=== PATIENT | female | born 1980 | race Caucasian/White ===

== ENCOUNTER → 2018-04-07 | Outpatient (CLI) | payer BC ==
[2018-04-07 15:16] LABS: ADD MAN DIFF? NO; BASO # 0.1 x10^3/uL (0.0-0.2); BASO % 1 % (0-3); EOS # 0.1 x10^3/uL (0.0-0.7); EOS % 1 % (0-3); HEMATOCRIT 36.1 % (36.0-47.0); HEMOGLOBIN 11.8 g/dL (12.0-15.5); LYMPH # 1.9 x10^3/uL (1.0-4.8); LYMPH % 19 % (24-48); MEAN CORPUSCULAR HEMOGLOBIN 25 pg (25-35); MEAN CORPUSCULAR HGB CONC 33 g/dL (31-37); MEAN CORPUSCULAR VOLUME 77 fL (79-100); MONO # 0.7 x10^3/uL (0.0-1.1); MONO % 7 % (0-9); NEUT # 7.2 x10^3uL (1.8-7.7); NEUT % 73 % (31-73); PLATELET COUNT 336 x10^3/uL (140-400); RED BLOOD COUNT 4.69 x10^6/uL (3.50-5.40); RED CELL DISTRIBUTION WIDTH 16.2 % (11.5-14.5); WHITE BLOOD COUNT 9.9 x10^3/uL (4.0-11.0)
[2018-04-07 15:20] LABS: BILIRUBIN,URINE NEGATIVE (NEG); CLARITY,URINE CLEAR; COLOR,URINE YELLOW; GLUCOSE,URINE NEGATIVE (NEG); NITRITE,URINE NEGATIVE (NEG); PH,URINE 5.5; PROTEIN,URINE NEGATIVE (NEG-TRACE); UROBILINOGEN,URINE 0.2 mg/dL (0.2 mg/dL)
[2018-04-07 15:29] LABS: ALBUMIN 3.4 g/dL (3.4-5.0); ALBUMIN/GLOBULIN RATIO 0.8 (1.0-1.7); ALK PHOS 92 U/L (46-116); ALT (SGPT) 25 U/L (14-59); ANION GAP 9 (6-14); AST (SGOT) 17 U/L (15-37); BLOOD UREA NITROGEN 13 mg/dL (7-20); BUN/CREATININE RATIO 13 (6-20); CALCIUM 8.7 mg/dL (8.5-10.1); CARBON DIOXIDE 30 mmol/L (21-32); CHLORIDE 104 mmol/L (98-107); GFR 62.7; GLUCOSE 101 mg/dL (70-99); POTASSIUM 3.9 mmol/L (3.5-5.1); SODIUM 143 mmol/L (136-145); TOTAL BILIRUBIN 0.2 mg/dL (0.2-1.0); TOTAL PROTEIN 7.5 g/dL (6.4-8.2)
[2018-04-07 15:34] LABS: BACTERIA,URINE FEW /HPF (0-FEW); RBC,URINE 0 /HPF (0-2); SQUAMOUS EPITHELIAL CELL,UR MOD /LPF; WBC,URINE 0 /HPF (0-4)
== END | disposition home or self-care (01) ==
LOC: SURGPAT 14:39
DX: Z01.818 Encounter for other preprocedural examination (principal); R07.89 Other chest pain; E66.01 Morbid (severe) obesity due to excess calories
CPT/HCPCS: 36415; 71046; 80053; 81001; 85025; 93005

== ENCOUNTER 2018-04-14 05:50 | Observation (INO) | payer BC ==
[2018-04-14] MEDS ORDERED: ISOSULFAN BLUE 50 MG/5 ML VIAL. SQ (06:28)
[2018-04-14] MEDS ORDERED: ESTROGENS, CONJ VAGINAL CREAM 30GM TUBE. (06:28)
[2018-04-14] MEDS ORDERED: ROCURONIUM 50 MG/5 ML VIAL. ×2 (06:56→08:16)
[2018-04-14] MEDS ORDERED: PROPOFOL 20 ML IV (06:56)
[2018-04-14] MEDS ORDERED: LIDOCAINE 2% PF Vial for OR 5 ML VIAL. (06:56)
[2018-04-14] MEDS ORDERED: MIDAZOLAM HCL/PF 2 MG/2 ML VIAL. (06:57)
[2018-04-14] MEDS ORDERED: fentaNYL PF VIAL 250 MCG/5 ML VIAL (06:57)
[2018-04-14] MEDS: IV RINGERS,LACTATED 1000ML 1,000 ML IV (07:18)
[2018-04-14 07:26] LABS: NEG OBC UR NEG; POS OBC UR POS; U PREG PATIENT NEGATIVE (NEG)
[2018-04-14] MEDS: ceFAZolin SODIUM 3 GM in IV DEXTROSE 5% 100ML 100 ML IV (07:51)
[2018-04-14] MEDS ORDERED: DEXAMETHASONE SOD PHOS 20 MG/5 ML VIAL. (08:08)
[2018-04-14] MEDS ORDERED: ONDANSETRON PF 4 MG/2 ML VIAL. (08:08)
[2018-04-14] MEDS: BUPIVACAINE-EPI 0.25%-1:200000 50 ML VIAL. (08:46)
[2018-04-14] MEDS ORDERED: GLYCOPYRROLATE 1 MG/5 ML VIAL. (08:50)
[2018-04-14] MEDS ORDERED: NEOSTIGMINE METHYLSULFATE 5 MG/5 ML SYRINGE. (08:50)
[2018-04-14] MEDS ORDERED: PHENYLEPHRINE in 0.9% NACL PF 1 MG/10 ML SYRINGE. IV (09:11)
[2018-04-14] MEDS ORDERED: SIMETHICONE 80 MG TAB.CHEW PO (09:45)
[2018-04-14] MEDS ORDERED: diphenhydrAMINE 50 MG/ML VIAL IV (09:45)
[2018-04-14] MEDS ORDERED: HYDROcodone/APAP 5/325MG 1 TAB TABLET PO (09:45)
[2018-04-14] MEDS ORDERED: diphenhydrAMINE HCL 25 MG CAPSULE PO (09:45)
[2018-04-14] MEDS ORDERED: MORPHINE SULFATE 2 MG/ML DISP.SYRIN. IV ×2 (09:45→10:15)
[2018-04-14] MEDS ORDERED: ZOLPIDEM 5 MG TABLET. PO (09:45)
[2018-04-14] MEDS ORDERED: 0.9 % SODIUM CHLORIDE 10 ML DISP.SYRIN. IV (09:45)
[2018-04-14] MEDS ORDERED: ONDANSETRON PF 4 MG/2 ML VIAL. IV ×3 (09:45→10:15)
[2018-04-14] MEDS ORDERED: LACTULOSE 20 GM/30 ML SOLUTION. PO (09:45)
[2018-04-14] MEDS ORDERED: MAG HYDROX/ALUMINUM HYD/SIMETH 30 ML ORAL.SUSP PO (09:45)
[2018-04-14] MEDS ORDERED: NALOXONE 0.4 MG/ML VIAL. IV (09:45)
[2018-04-14] MEDS ORDERED: MAGNESIUM HYDROXIDE 2,400 MG/30 ML ORAL.SUSP. PO (09:45)
[2018-04-14] MEDS ORDERED: PROCHLORPERAZINE 10 MG/2 ML VIAL. (09:57)
[2018-04-14] MEDS ORDERED: fentaNYL PF VIAL 100 MCG/2 ML VIAL (09:57)
[2018-04-14] MEDS ORDERED: IV RINGERS,LACTATED 1000ML 1,000 ML IV ×2 (10:03)
[2018-04-14] MEDS: PROCHLORPERAZINE 10 MG/2 ML VIAL. IV (10:07)
[2018-04-14] MEDS: fentaNYL PF VIAL 100 MCG/2 ML VIAL IV ×2 (10:07→10:20)
[2018-04-14] MEDS ORDERED: PROCHLORPERAZINE 10 MG/2 ML VIAL. IV (10:15)
[2018-04-14] MEDS ORDERED: fentaNYL PF VIAL 100 MCG/2 ML VIAL IV ×3 (10:15)
[2018-04-14] MEDS ORDERED: LIDOCAINE 1% PF 2 ML VIAL. ID ×2 (10:15)
[2018-04-14] MEDS ORDERED: MORPHINE SULFATE 2 MG/ML DISP.SYRIN. (10:28)
[2018-04-14] MEDS: MORPHINE SULFATE 2 MG/ML DISP.SYRIN. IV ×2 (10:32→10:55)
[2018-04-14] MEDS: ESTRADIOL WEEKLY 0.1 MG PATCH. TD (11:56)
[2018-04-14] MEDS: oxyCODONE/APAP 5/325 1 TAB TABLET PO ×2 (11:57→17:15)
[2018-04-14 16:40] LABS: HEMOGLOBIN 11.4 g/dL (12.0-15.5)
[2018-04-14] MEDS: CALCIUM CARBONATE 500 MG TAB.CHEW PO (17:15)
== END 2018-04-14 18:31 | disposition home or self-care (01) ==
LOC: SURG 05:50 → 3 NORTH 10:27
DX: D25.9 Leiomyoma of uterus, unspecified (principal); D64.9 Anemia, unspecified; N80.3 Endometriosis of pelvic peritoneum; N92.0 Excessive and frequent menstruation with regular cycle; N83.202 Unspecified ovarian cyst, left side
CPT/HCPCS: 36415; 81025; 85018; 86850; 86900; 86901; 88307; A7015; G0378; G0379; J0780; J1100; J2001; J2250; J2270; J2370; J2405; J2704; J2710; J3010; J3490; J7030; J7120; Q9968

== ENCOUNTER → 2020-05-31 | Outpatient (CLI) | payer BC ==
[2018-04-14 15:57] VITALS: BP 95/54
[~2020-05-31] MED LIST: ALPR0.25 PO; HYDR-2761 PO; SERT100T PO
--- NOTE | 2020-05-31 09:58 | KCIC ---
EXAMINATION: MRI RIGHT ELBOW WITHOUT IV CONTRAST CLINICAL HISTORY: Right elbow pain concerning for lateral epicondylitis TECHNIQUE: Multiplanar multisequential images obtained through the elbow without intravenous contrast. COMPARISON: None FINDINGS: ULNAR COLLATERAL LIGAMENT: Within normal limits. RADIAL COLLATERAL LIGAMENT: Within normal limits. LATERAL ULNAR COLLATERAL LIGAMENT: Within normal limits. COMMON EXTENSOR TENDON: Within normal limits. COMMON FLEXOR TENDON: Within normal limits. BICEPS TENDON: Within normal limits. TRICEPS TENDON: Within normal limits. BRACHIALIS TENDON: Within normal limits. ARTICULAR CARTILAGE: Small area of full-thickness chondral fissuring/loss with subchondral marrow reactive/cystic changes in the posterior capitellum. MUSCLES: Muscle bulk and signal intensity within normal limits. BONE/MARROW: No evidence of acute fracture or suspicious marrow replacing process. NERVES: Normal size, signal, and position and the ulnar nerve. Partially visualized radial and median nerves within normal limits. JOINT FLUID: No significant joint effusion or synovitis. IMPRESSION: Mild full-thickness chondral wear in the radiocapitellar joint, otherwise unremarkable exam. Electronically signed by: Alden Estrella DO (05/31/2020 9:55 AM) [id number]
== END ==
LOC: KCIC MRI 07:54
DX: M77.11 Lateral epicondylitis, right elbow (principal); M25.521 Pain in right elbow; G56.01 Carpal tunnel syndrome, right upper limb
CPT/HCPCS: 73221